=== PATIENT | male | born 1990 | race Caucasian/White ===

== ENCOUNTER 2019-01-24 19:16 | Emergency (ER) | payer OTHER ==
[~2019-01-24] VITALS: Ht 188 cm; Wt 108.9 kg
[2019-01-24 19:19] VITALS: Ht 188 cm; Wt 108.9 kg
[2019-01-24 20:11] LABS: CALCIUM 8.7 mg/dL (8.5-10.1); CARBON DIOXIDE 28.4 mmol/L (21-32); CHLORIDE SERUM 108 mmol/L (98-107); CREATININE SERUM 0.9 mg/dL (0.7-1.3); GFR1 > 60 mL/min; GLUCOSE SERUM 80 mg/dL (74-106); POTASSIUM SERUM 4.2 mmol/L (3.5-5.1); SODIUM SERUM 146 mmol/L (136-145)
[2019-01-24 20:17] LABS: ALBUMIN 3.9 g/dL (3.4-5.0); ALKALINE PHOSPHATASE 86 U/L (46-116); ALT/SGPT 30 U/L (16-63); AST/SGOT 12 U/L (15-37); BILIRUBIN TOTAL 0.2 mg/dL (0.20-1.00); TOTAL PROTEIN, SERUM 7.3 g/dL (6.4-8.2)
[2019-01-24 20:20] LABS: BASOPHIL % 0.5 % (0-2); PLATELET COUNT 286 x10^3mcL (130-400); RED CELL DISTRIBUTION WIDTH 13.9 % (11.5-14.5)
[2019-01-24 21:33] LABS: microscopic required? NO
[2019-01-24 21:46] LABS: UA SPECIFIC GRAVITY <=1.005 (1.005-1.035); urine erythrocyte NEGATIVE (NEGATIVE)
[2019-01-24 22:05] LABS: AMPHETAMINE QUAL UR POSITIVE (See below)
[2019-01-25 13:45] VITALS: BP 117/68
== END 2019-01-25 13:45 ==
LOC: ED 19:16
PROVIDERS: Emergency Medicine
DX: T48.3X2A Poisoning by antitussives, intentional self-harm, initial encounter (principal); I10 Essential (primary) hypertension; Y92.89 Other specified places as the place of occurrence of the external cause
CPT/HCPCS: 36415; 36600; G0480; J7030